=== PATIENT | male | born 1985 | race Caucasian/White ===

== ENCOUNTER 2016-05-04 21:37 | Emergency (ER) | payer BC ==
[2016-05-04] MEDS ORDERED: Sodium Chloride 0.9% 10 ML Syringe FLUSH PRN (21:49)
[2016-05-04] MEDS ORDERED: Sodium Chloride 0.9% 2.5 ML Syringe FLUSH PRN (21:49)
--- NOTE | 2016-05-04 21:49 | EDM.PDOC ---
ED HPI GENERAL MEDICAL PROBLEM - General Chief Complaint: ENT Problem Stated Complaint: STEAK STUCK IN THROAT Time Seen by Provider: 05/04/16 21:44 - History of Present Illness INITIAL COMMENTS - FREE TEXT/NARRATIVE: HISTORY AND PHYSICAL: History of present illness: Patient 30-year-old white male transferred for esophageal food bolus this was a piece of steak he was eating earlier tonight has not been able to tolerate any oral liquids or saliva no trouble breathing or shortness of breath multiple episodes in the past and has had endoscopy including esophageal dilatation this most recent time was approximately 6 years prior. Review of systems: As per history of present illness and below otherwise all systems reviewed and negative. Past medical history: As per history of present illness and as reviewed below otherwise noncontributory. Surgical history: As per history of present illness and as reviewed below otherwise noncontributory. Social history: No reported history of drug or alcohol abuse. Family history: As per history of present illness and as reviewed below otherwise noncontributory. Physical exam: HEENT: Atraumatic, normocephalic, pupils reactive, negative for conjunctival pallor or scleral icterus, mucous membranes moist, throat clear, neck supple, nontender, trachea midline. Lungs: Clear to auscultation, breath sounds equal bilaterally, chest nontender. Heart: S1S2, regular, negative for clicks, rubs, or JVD. Abdomen: Soft, nondistended, nontender. Negative for masses or hepatosplenomegaly. Negative for costovertebral tenderness. Pelvis: Stable nontender. Genitourinary: Deferred. Rectal: Deferred. Extremities: Atraumatic, negative for cords or calf pain. Neurovascular unremarkable. Neuro: Awake, alert, oriented. Cranial nerves II through XII unremarkable. Cerebellum unremarkable. Motor and sensory unremarkable throughout. Exam nonfocal. Diagnostics: None Therapeutics: IV glucagon 1 mg IM Impression: #1 esophageal food bolus Definitive disposition and diagnosis as appropriate pending reevaluation and review of above. - Related Data Allergies Allergy/AdvReac Type Severity Reaction Status Date / Time oxycodone [From OxyContin] Allergy Anaphylactic Verified 05/04/16 22:07 Shock Home Meds: Home Meds . [No Known Home Meds] 05/04/16 [History] ED ROS GENERAL - Review of Systems Review Of Systems: ROS reveals no pertinent complaints other than HPI. ED EXAM, GENERAL - Physical Exam Exam: See Below (See dictation) Course - Vital Signs Last Recorded V/S: Last Vital Signs Temp 37.3 C 05/04/16 21:43 Pulse 86 05/04/16 22:11 Resp 18 05/04/16 22:11 BP 148/99 H 05/04/16 22:11 Pulse Ox 96 05/04/16 22:11 - Orders/Labs/Meds Orders: Active Orders 24 hr Category Date Time Status Sodium Chloride 0.9% [Saline Flush] Med 05/04/16 21:49 Active 10 ml FLUSH ASDIRECTED PRN Sodium Chloride 0.9% [Saline Flush] Med 05/04/16 21:49 Active 2.5 ml FLUSH ASDIRECTED PRN Saline Lock Insert [OM.PC] Stat Oth 05/04/16 21:49 Ordered Medication Orders Sodium Chloride (Saline Flush) 10 ml FLUSH ASDIRECTED PRN PRN Reason: Keep Vein Open Sodium Chloride (Saline Flush) 2.5 ml FLUSH ASDIRECTED PRN PRN Reason: Keep Vein Open Meds: Medications Generic Name Dose Route Start Last Admin Trade Name Freq PRN Reason Stop Dose Admin Sodium Chloride 10 ml 05/04/16 21:49 Saline Flush FLUSH ASDIRECTED PRN Keep Vein Open Sodium Chloride 2.5 ml 05/04/16 21:49 Saline Flush FLUSH ASDIRECTED PRN Keep Vein Open Discontinued Medications Generic Name Dose Route Start Last Admin Trade Name Freq PRN Reason Stop Dose Admin Glucagon 1 mg 05/04/16 21:51 05/04/16 22:01 Glucagen IVPUSH 05/04/16 21:52 1 mg ONETIME ONE Administration Departure - Departure Time of Disposition: 22:31 Disposition: Home, Self-Care 01 Condition: good Clinical Impression: Dysphagia Referrals: Marques Corado MD [Physician] - Forms: ED Department Discharge Additional Instructions: Liquid diet for the next 48hours. RX for Prilosec. Follow up with Dr. Corado in his clinic in 7-10days. General Surgery - My Orders Last 24 Hours: My Active Orders 05/04/16 21:49 Sodium Chloride 0.9% [Saline Flush] 10 ml FLUSH ASDIRECTED PRN Sodium Chloride 0.9% [Saline Flush] 2.5 ml FLUSH ASDIRECTED PRN Saline Lock Insert [OM.PC] Stat - Assessment/Plan Last 24 Hours: My Active Orders 05/04/16 21:49 Sodium Chloride 0.9% [Saline Flush] 10 ml FLUSH ASDIRECTED PRN Sodium Chloride 0.9% [Saline Flush] 2.5 ml FLUSH ASDIRECTED PRN Saline Lock Insert [OM.PC] Stat
[2016-05-04] MEDS ORDERED: Glucagon,Human Recombinant 1 MG Vial IVPUSH ONE (21:51)
[2016-05-04 22:57] VITALS: BP 159/98
--- NOTE | 2016-05-05 06:25 | CONS ---
DATE OF CONSULTATION: 05/04/2016 DATE OF : 1985 PRIMARY CARE PHYSICIAN: None PCP Consult was called. The patient was seen shortly after. CONCERNING QUESTION: A piece stuck in the throat, cannot speak, cannot swallow saliva. HISTORY OF PRESENT ILLNESS: The patient is a 30 years old male known to have esophageal stricture from unknown reason. Had EGD and esophageal dilatation per the patient's self report 10 years ago and since then, he has frequent food stuck in the throat. He will usually do self induced vomiting and that will get him through except this time, it did not. He had a stricture about 2 hours ago, and since then he has a feeling that a piece stuck in the throat and is seeking help in the emergency room. Surgery was then consulted. PAST MEDICAL HISTORY: Denied diabetes, IN, CVA, or hypertension. PAST SURGICAL HISTORY: None except EGD with dilatation. ALLERGIES: Please refer to nursing notes for details. MEDICATIONS: Please refer to nursing notes for details. FAMILY HISTORY: Noncontributory. SOCIAL HISTORY: The patient is a current smoker. Denied chewing tobacco or alcohol use. PHYSICAL EXAMINATION: GENERAL: A very pleasant nice gentleman, in no acute distress. HEENT: Normocephalic, atraumatic. Sclerae anicteric. LUNGS: Clear to auscultation. HEART: Regular rate and rhythm. ABDOMEN: Soft, nondistended. No pulsating, tender midline abdominal structure. No epigastric pain. No surgical scar. No hernia. No mass. IMPRESSION: Sensation of food stuck in the throat of unknown history, probably likely from acid reflux chronic in nature. Give the patient glucagon IV and a couple of water. The patient is drinking it down without problem and suggests that the patient go home with only liquid diet for the next 2 days, and on the third day he can resume solid diet. Also, put the patient on 2-week supply of Prilosec and follow in my office 1 to 2 weeks. The patient voiced understanding to proceed as planned. As always, thank you for the kind referral. GINO CALDERON /[id number]
== END 2016-05-04 22:55 | disposition home or self-care (01) ==
LOC: MW.ED 21:37
DX: T18.120A Food in esophagus causing compression of trachea, initial encounter (principal)
CPT/HCPCS: 96374; 99284; J1610